=== PATIENT | male | born 1940 | race Caucasian/White ===

== ENCOUNTER 2017-02-19 17:16 | Emergency (ER) | payer MEDICARE ==
[~2017-02-19 17:16] MED LIST: ELIQUIS 5 MG TAB5 MG PO
[2017-04-13] MEDS ORDERED: COREG 3.125M3.125 MG PO (12:13)
[2017-04-14] MEDS ORDERED: LEVAQUIN500 MG PO (07:33)
[2017-04-14] MEDS ORDERED: TYLENOL W/CODEIN1 E1 PO (07:34)
== END 2017-02-20 00:58 | disposition home or self-care (01) ==
LOC: ER1 17:16
DX: S92.424A Nondisplaced fracture of distal phalanx of right great toe, initial encounter for closed fracture (principal); W20.8XXA Other cause of strike by thrown, projected or falling object, initial encounter; Y92.009 Unspecified place in unspecified non-institutional (private) residence as the place of occurrence of the external cause; Z88.6 Allergy status to analgesic agent; Z88.8 Allergy status to other drugs, medicaments and biological substances
CPT/HCPCS: 73630; 99283

== ENCOUNTER 2017-03-03 15:39 | Inpatient (IN) | payer MEDICARE ==
[~2017-03-03] VITALS: Ht 165.1 cm; Wt 82.1 kg
[2017-03-03] MEDS ORDERED: LOTENSIN 5 MG TA5 MG PO (17:34)
[2017-03-03] MEDS ORDERED: PLAVIX75 MG PO (17:35)
[2017-03-03] MEDS ORDERED: COREG 3.125M3.125 MG PO (17:35)
[2017-03-03] MEDS ORDERED: CRESTOR20 MG PO (17:36)
[2017-03-03] MEDS ORDERED: ELIQUIS2.5 MG PO (17:37)
[2017-03-03] MEDS ORDERED: FLOMAX 0.4 MG0.4 MG PO (17:38)
[2017-03-03] MEDS ORDERED: SYNTHROID112 MCG PO (17:39)
[2017-03-03] MEDS ORDERED: TYLENOL 500 MG500 MG PO (17:40)
[2017-03-03] MEDS ORDERED: ZETIA10 MG PO (17:40)
[2017-03-03] MEDS ORDERED: ALDACTONE25 MG PO (17:41)
[2017-03-03] MEDS ORDERED: LASIX20 MG PO (17:41)
[2017-03-03 19:41] LABS: HEMOGLOBIN 10.9 gm/dl (14.0-17.5); RED BLOOD COUNT 3.62 M/UL (4.20-5.50); WHITE BLOOD COUNT 7.5 K/UL (4.5-11.0)
[2017-03-04 06:30] LABS: HEMOGLOBIN 10.6 gm/dl (14.0-17.5); RED BLOOD COUNT 3.55 M/UL (4.20-5.50)
[2017-03-06 04:07] LABS: HEMOGLOBIN 9.9 gm/dl (14.0-17.5); RED BLOOD COUNT 3.33 M/UL (4.20-5.50)
[2017-03-08 03:05] LABS: HEMOGLOBIN 9.4 gm/dl (14.0-17.5)
[2017-03-08] MEDS ORDERED: LORTAB 7.5-3251 EACH PO (19:13)
[2017-03-08] MEDS ORDERED: VITAMIN C 500500 MG PO (19:15)
[2017-03-08] MEDS ORDERED: CRESTOR20 MG PO (19:17)
[2017-04-13] MEDS ORDERED: COREG 3.125M3.125 MG PO (12:13)
[2017-04-14] MEDS ORDERED: LEVAQUIN500 MG PO (07:33)
[2017-04-14] MEDS ORDERED: TYLENOL W/CODEIN1 E1 PO (07:34)
== END 2017-03-08 21:45 | disposition home or self-care (01) | DRG 478 ==
LOC: M/S 15:39 → PROG CARE 16:27 → M/S 16:27 → PROG CARE 03-05 20:27
PROVIDERS: Hospitalist; Internal Medicine; Podiatrist Foot & Ankle Surgery; ADMIT Family Medicine
PROC: 0QBQ0ZX Excision of Right Toe Phalanx, Open Approach, Diagnostic (ICD-10-PCS; principal; 2017-03-05 13:00)
PROC: 0HQRXZZ Repair Toe Nail, External Approach (ICD-10-PCS; principal; 2017-03-05 13:00)
PROC: 0JDQ0ZZ Extraction of Right Foot Subcutaneous Tissue and Fascia, Open Approach (ICD-10-PCS; principal; 2017-03-05 13:00)
DX: S92.421B Displaced fracture of distal phalanx of right great toe, initial encounter for open fracture (principal); I96 Gangrene, not elsewhere classified; N17.9 Acute kidney failure, unspecified; E87.5 Hyperkalemia; T50.0X5A Adverse effect of mineralocorticoids and their antagonists, initial encounter; T46.4X5A Adverse effect of angiotensin-converting-enzyme inhibitors, initial encounter; I48.0 Paroxysmal atrial fibrillation; I49.5 Sick sinus syndrome; L03.031 Cellulitis of right toe; I12.9 Hypertensive chronic kidney disease with stage 1 through stage 4 chronic kidney disease, or unspecified chronic kidney disease; N18.3 Chronic kidney disease, stage 3 (moderate); E66.9 Obesity, unspecified; E89.0 Postprocedural hypothyroidism; I25.10 Atherosclerotic heart disease of native coronary artery without angina pectoris; G62.9 Polyneuropathy, unspecified; G47.33 Obstructive sleep apnea (adult) (pediatric); M35.3 Polymyalgia rheumatica; Y92.009 Unspecified place in unspecified non-institutional (private) residence as the place of occurrence of the external cause; Z79.01 Long term (current) use of anticoagulants; Z95.5 Presence of coronary angioplasty implant and graft; Z85.72 Personal history of non-Hodgkin lymphomas; J44.9 Chronic obstructive pulmonary disease, unspecified; Z77.22 Contact with and (suspected) exposure to environmental tobacco smoke (acute) (chronic); Z82.49 Family history of ischemic heart disease and other diseases of the circulatory system; Z80.8 Family history of malignant neoplasm of other organs or systems; Z88.6 Allergy status to analgesic agent; Z88.8 Allergy status to other drugs, medicaments and biological substances; E75.6 Lipid storage disorder, unspecified; Z68.31 Body mass index [BMI] 31.0-31.9, adult; W22.8XXA Striking against or struck by other objects, initial encounter; Y93.89 Activity, other specified; Y92.9 Unspecified place or not applicable; I25.2 Old myocardial infarction
CPT/HCPCS: ECHO; 36415; 73630; 80048; 80053; 80202; 81001; 82043; 82570; 83735; 84132; 84156; 84300; 84439; 84443; 85014; 85018; 85025; 85027; 86140; 87040; 87070; 87205; 93005; 93306; 94640; 94660; J1885; J2250; J2405; J2543; J2795; J3370; J7030; J7040; J7050; J7070; J7120